=== PATIENT | female | born 1935 | race Caucasian/White ===

== ENCOUNTER → 2016-06-17 | Outpatient (CLI) | payer MEDICARE, BC ==
[~2016-06-17] MED LIST: ARICEPT5 MG PO; ASPIRIN325 MG PO; BETIMOL5 ML EYEBOTH; BYSTOLIC5 MG PO; CALCIUM 600 +1 EAC1 PO; CELEXA20 MG PO; LIVALO2 MG PO; LUMIGAN 0.01%2.5 ML EYEBOTH; MUCINEX600 MG PO; NAMENDA XR28 MG PO; NAMENDA10 MG PO; PRILOSEC20 MG PO; SYNTHROID100 MCG PO; TESSALON PERLE100 M1 PO; THERA M PLUS T1 EACH PO; ULTRAM50 MG PO; VIBRAMYCIN100 MG PO
== END | disposition short-term general hospital (02) ==
LOC: CLCARD 11:18
DX: I25.10 Atherosclerotic heart disease of native coronary artery without angina pectoris (principal); I10 Essential (primary) hypertension; E78.5 Hyperlipidemia, unspecified; I49.5 Sick sinus syndrome; I70.0 Atherosclerosis of aorta; Z95.0 Presence of cardiac pacemaker